=== PATIENT | male | born 1985 | race Caucasian/White ===

== ENCOUNTER 2017-06-08 12:55 | Emergency (ER) | payer SELFPAY ==
[2017-06-08 13:38] VITALS: BP 119/71
--- NOTE | 2017-06-08 14:51 | UC ---
Upper Extremity HPI - History of Current Complaint Chief Complaint: Vinicio Stated Complaint: LEFT INDEX FINGER WOUND Time Seen by Provider: 06/08/17 14:49 - Allergies/Home Medications Allergies/Adverse Reactions: Allergies Allergy/AdvReac Type Severity Reaction Status Date / Time Metronidazole Allergy See Comment Verified 06/08/17 13:32 Home Medications: Home Medications Cyanocobalamin [B12] 1,000 mcg PO DAILY 06/08/17 [History Confirmed 06/08/17] PMH/Surg Hx/FS Hx/Imm Hx - Surgical History Surgical History: Yes Surgery Procedure, Year, and Place: Pilonidal Cystectomy, 10/21/12, [facility] - Social History Alcohol Use: Occasionally Substance Use Type: None Smoking Status (MU): Never Smoked Tobacco - Immunization History Most Recent Tetanus Shot: 2009 Physical Exam Vital Signs: Initial Vital Signs Temp 98.1 F 06/08/17 13:34 Pulse 60 06/08/17 13:34 Resp 16 06/08/17 13:34 BP 119/71 06/08/17 13:34 Pulse Ox 100 06/08/17 13:34
== END 2017-06-08 15:14 | disposition home or self-care (01) ==
LOC: UCCORT 12:55
DX: S60.411A Abrasion of left index finger, initial encounter (principal); X58.XXXA Exposure to other specified factors, initial encounter; Y92.9 Unspecified place or not applicable
CPT/HCPCS: 99201; G0463